=== PATIENT | male | born 1990 | race African-American/Black ===

== ENCOUNTER 2017-10-10 20:30 | Outpatient (CLI) | payer OTHER | END 2017-10-10 20:31 | disposition home or self-care (01) | LOC: SLEEPLAB 20:30 | PROVIDERS: ATTEND Family Medicine | DX: G47.33 Obstructive sleep apnea (adult) (pediatric) (principal); R06.81 Apnea, not elsewhere classified; I10 Essential (primary) hypertension; E66.9 Obesity, unspecified; R06.83 Snoring | CPT/HCPCS: 95811 ==